=== PATIENT | male | born 1985 | race Asian ===

== ENCOUNTER 2016-05-31 23:32 | Emergency (ER) | payer OTHER ==
[~2016-05-31] VITALS: Ht 172.7 cm; Wt 72.7 kg
[2016-06-01] MEDS ORDERED: LIDOCAINE HCL BUFFERED 1% W/EPI 1:100,000 20 ML VIAL INJ ONE (00:15)
[2016-06-01] MEDS ORDERED: PERTUSS(ACELL),DIPH,TET VAC/PF 0.5 ML VIAL IM ONE (00:15)
[2016-06-01] MEDS ORDERED: BACITRACIN 0.9 GM PACKET OINTMENT TP ONE (02:45)
[2016-06-01 03:09] VITALS: BP 129/78
== END 2016-06-01 03:38 | disposition home or self-care (01) ==
LOC: EMS 23:32
DX: S61.411A Laceration without foreign body of right hand, initial encounter (principal); W26.8XXA Contact with other sharp object(s), not elsewhere classified, initial encounter; Y93.89 Activity, other specified; Y92.89 Other specified places as the place of occurrence of the external cause; Y99.8 Other external cause status; F10.10 Alcohol abuse, uncomplicated; Y90.9 Presence of alcohol in blood, level not specified
CPT/HCPCS: 12002; 73130; 90471; 90715; 99284; J3490